=== PATIENT | female | born 1980 | race Caucasian/White ===

== ENCOUNTER 2023-07-18 10:04 | Day surgery (SDC) | payer BC ==
[~2023-07-18 10:04] MED LIST: Midazolam 1 MG/ML 2 ML SDV ONE; Propofol 200 MG/20 ML SDV ONE
[2023-07-18] MEDS ORDERED: Sodium Chloride 0.9% 10 ML Syringe FLUSH PRN (10:15)
[2023-07-18] MEDS: Lactated Ringers 1,000 ML IV SCH (10:47)
[2023-07-18] MEDS ORDERED: Lidocaine 2% 5 ML SDV ONE (11:13)
[2023-07-18] MEDS ORDERED: Glycopyrrolate 0.2 MG/ML SDV IVPUSH ONE (11:13)
== END 2023-07-18 12:04 | disposition home or self-care (01) ==
LOC: LL.SDS 10:04
PROVIDERS: ATTEND Surgery
DX: K21.9 Gastro-esophageal reflux disease without esophagitis (principal); K31.89 Other diseases of stomach and duodenum; I10 Essential (primary) hypertension; F41.9 Anxiety disorder, unspecified; Z79.899 Other long term (current) drug therapy
CPT/HCPCS: 00731; J2250; J2704; J3490; J7120

== ENCOUNTER 2024-12-03 09:21 | Day surgery (SDC) | payer BC ==
[~2024-12-03 09:21] MED LIST changes: +Sodium Chloride 0.9% 10 ML Syringe FLUSH PRN
[2024-12-03] MEDS: Lactated Ringers 1,000 ML IV SCH (10:24)
== END 2024-12-03 11:30 | disposition home or self-care (01) ==
LOC: LL.SDS 09:21
PROVIDERS: ATTEND Surgery
DX: Z12.11 Encounter for screening for malignant neoplasm of colon (principal); K63.5 Polyp of colon; I10 Essential (primary) hypertension; E66.9 Obesity, unspecified; Z88.8 Allergy status to other drugs, medicaments and biological substances; Z68.34 Body mass index [BMI] 34.0-34.9, adult; Z79.899 Other long term (current) drug therapy
CPT/HCPCS: 00811; J2250; J2704; J7120